=== PATIENT | male | born 2000 | race Caucasian/White ===

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

== ENCOUNTER 2023-01-09 08:30 | Emergency (ER) | payer OTHER ==
[2023-01-09 09:00] VITALS: BP 142/84; PULSE 89; RESP 18; TEMP 98.8; BMI 37.0
[2023-01-09] MEDS ORDERED: ALBUTEROL SO4 2.5/IPRATROPIUM 0.5 INH SOL 3 ML VIAL.NEB. NEB ONE ×2 (09:38→09:48)
[2023-01-09] MEDS ORDERED: IBUPROFEN 600 MG TABLET (FP) PO ONE ×2 (10:52→10:54)
== END 2023-01-09 11:07 | disposition home or self-care (01) ==
LOC: JER 08:30
PROC: 3E0F7GC Introduction of Other Therapeutic Substance into Respiratory Tract, Via Natural or Artificial Opening (ICD-10-PCS; principal; 2023-01-09)
DX: J10.1 Influenza due to other identified influenza virus with other respiratory manifestations (principal); J06.9 Acute upper respiratory infection, unspecified; R05.1 Acute cough; Z20.822 Contact with and (suspected) exposure to COVID-19
CPT/HCPCS: 0241U-QW; 71046-TC-FY; 93005; 93010; 99285-25